=== PATIENT | female | born 1965 | race Caucasian/White ===

== ENCOUNTER 2020-02-28 07:30 | Day surgery (SDC) | payer OTHER, SELFPAY ==
[~2020-02-28] VITALS: Ht 170.2 cm; Wt 66.7 kg
[2020-02-28] MEDS ORDERED: LIDOCAINE 2% 100 MG/5 ML UJET TP ONE (09:30)
[2020-02-28] MEDS ORDERED: fentaNYL citrate 0.05 MG/ML VIAL ONE (09:30)
== END 2020-02-28 11:55 | disposition home or self-care (01) ==
LOC: MDS 07:30 → MFCC 07:31 → MDS 11:55
PROVIDERS: ATTEND Internal Medicine Gastroenterology
DX: Z12.11 Encounter for screening for malignant neoplasm of colon (principal); D12.3 Benign neoplasm of transverse colon; Z11.59 Encounter for screening for other viral diseases; E03.9 Hypothyroidism, unspecified; Z79.899 Other long term (current) drug therapy
CPT/HCPCS: 45385; 81025; J3010; U0003